=== PATIENT | female | born 1980 | race Caucasian/White ===

== ENCOUNTER 2019-05-03 06:33 | Inpatient (IN) | payer BC, OTHER ==
[~2019-05-03] VITALS: Ht 165.1 cm; Wt 83.6 kg
[~2019-05-03 06:33] MED LIST: ADDERALL20 MG PO; ATIVAN 0.50.5 MG/TAB PO; BCP TD; BIRTH CONTROL; CEFTIN250 MG PO; CEFTIN500 MG PO; DIFLUCAN150 MG PO; LEXAPRO5 MG PO; LORTAB 5/500 501 TAB PO; NO HOME MEDICATIONS; NORCO 325 MG-51 TAB PO; PROZAC 20MG20 MG PO; WELLBUTRIN 75MG75 MG PO
[2019-05-10] VITALS (39 sets, daily range): BP systolic 102–153; BP diastolic 57–102; PULSE 78–120; TEMP 98–98.7
--- NOTE | 2019-05-10 07:30 | NUR ---
Patient ambulatory to LR3 with sister, changed into gown, and FHR/TOCO monitors placed and explained. Patient denies any regular contractions, vaginal bleeding, leaking of fluid. Plan of care discussed. 0800: IV start in left hand and blood obtained and to lab. IV infiltrated. 0810: IV placed in right hand and LR infusing. 0820: FHR monitor tracing maternal heart rate due to patient sitting forward. Assessment completed and Consents/ packet gone over a signed. 0830: FHR monitor tracing maternal heart rate intermittently. 0838: Dr. Tran at bedside and assessing patient/FHR strip. Plan of care discussed. 0840: SVE-2/70/-2 and AROM done at this time. Bloody/clear fluid noted at this time.
[2019-05-10] MEDS ORDERED: PRENATAL MVI (07:49)
[2019-05-10 08:12] LABS: BASO % 0.5 % (0.0-2.0); EOS # 0.1 (0.0-0.7); GRAN # 3.8 (1.4-6.5); GRAN % 58.8 % (42.2-75.2); HEMOGLOBIN 11.2 g/dl (12.5-16.0); LYMPH # 1.7 (1.2-3.4); MEAN CELL VOLUME 86 fl (80.0-100.0); MEAN CORPUSCULAR HEMOGLOBIN 29 pg (27.0-31.0); MEAN CORPUSCULAR HGB CONC 33 g/dl (33.0-37.0); MEAN PLATELET VOLUME 10.2 fl (7.4-10.4); MONO # 0.7 (0.1-0.6); MONO % 10.8 % (1.7-9.3); PLATELET COUNT 218 K/mm3 (130-400); RED BLOOD COUNT 3.89 M/mm3 (4.10-5.30); REDCELL DISTRIBUTION WIDTH-CV 13.6 % (11.5-14.5)
[2019-05-10 08:14] LABS: HEMATOCRIT 33.6 % (37.0-47.0)
--- NOTE | 2019-05-10 08:55 | NUR ---
Patient off monitor to void, light brown/green tinged fluid noted on towel/chucks.
--- NOTE | 2019-05-10 10:05 | NUR ---
Pericare done and light green/brown/pink tinged fluid noted on towel.
--- NOTE | 2019-05-10 10:10 | NUR ---
FHR baseline 145-150bpm and intermittently tracing maternal heart rate due to patietn sitting forward. 1025: FHR monitor continues to intermittently trace maternal heart rate due to patient repositioning, monitor adjusted at this time.
--- NOTE | 2019-05-10 11:00 | NUR ---
Patient requesting epidural and Ever Nava CRNA notified. 1120: Patient sitting on edge of bed and FHR difficult to trace due to patients position. Ever Nava CRNA at bedside for placement of epidural. 1126: Test dose given and patient tolerates well. 1132: Patient repositioned and plan of care discussed. Dr. Tran at nurses station and updated.
--- NOTE | 2019-05-10 14:00 | NUR ---
FHR monitor tracing maternal heart rate intermittently. 1400: SVE-8-9/90/0 and patient left lateral with peanut ball in place. Difficulty tracing FHR and monitor adjusted.
--- NOTE | 2019-05-10 15:00 | NUR ---
SVE-10/100/0 and patient requesting to rest and sit up for awhile before pushing. Dr. Tran notified/see physician notification. 1532: Patient begins to practice push with contractions with this RN. 1535: Dr. Tran called and notified to come for delivery and on the way. Patient resting and granados catheter removed and patient tolerates well. 1548: Dr. Tran at bedside and patient set up for vaginal delivery. Bed taken apart and pericare done. 1550: Patient begins to push per Dr. Baez orders. 1552: Spontaneous vaginal delivery of head followed by body, bulbed syringed and to patient abdomen and Wendy RN assumes care of infant. Cord clamped by Dr. Tran and clamped by sister of patient. 1555: Spontaneous delivery of placenta and pitocin bolus started per protocol. Fundal massage done/moderate bleeding noted/boggy and after massage begins to firm and bleeding slows. Dr. Tran begins to repair laceration. Fundal massage done/bleeding moderate and red lisa done at this time per physician. Order for methergine at this time. 1605: Methergine IM given in right thigh. Patient repositioned and ice pack to perineum. Plan of care discussed.
[2019-05-11 02:30] VITALS: BP 95/62; PULSE 79; TEMP 97.9
[2019-05-11 07:15] VITALS: BP 106/68; PULSE 79; TEMP 97.6
[2019-05-11] MEDS ORDERED: PERCOCET 325 MG1 TA2 PO (07:40)
[2019-05-11] MEDS ORDERED: MOTRIN 800800 MG/TAB PO (07:40)
[2019-05-11 11:15] VITALS: BP 102/67; PULSE 75; TEMP 98.2
[2019-05-11 16:28] VITALS: BP 101/69; PULSE 81; TEMP 98
== END 2019-05-11 17:00 | disposition home or self-care (01) | DRG 806 ==
LOC: LDR 05-10 06:32 → OB 05-10 07:15
PROVIDERS: ADMIT Obstetrics & Gynecology
PROC: 10E0XZZ Delivery of Products of Conception, External Approach (ICD-10-PCS; principal; 2019-05-10)
PROC: 0KQM0ZZ Repair Perineum Muscle, Open Approach (ICD-10-PCS; 2019-05-10)
PROC: 10907ZC Drainage of Amniotic Fluid, Therapeutic from Products of Conception, Via Natural or Artificial Opening (ICD-10-PCS; 2019-05-10)
PROC: 3E033VJ Introduction of Other Hormone into Peripheral Vein, Percutaneous Approach (ICD-10-PCS; 2019-05-10)
DX: O77.0 Labor and delivery complicated by meconium in amniotic fluid (principal); O44.23 Partial placenta previa NOS or without hemorrhage, third trimester; Z37.0 Single live birth; O70.1 Second degree perineal laceration during delivery; Z3A.39 39 weeks gestation of pregnancy; Z23 Encounter for immunization; O99.52 Diseases of the respiratory system complicating childbirth; J45.909 Unspecified asthma, uncomplicated; O99.62 Diseases of the digestive system complicating childbirth; O99.344 Other mental disorders complicating childbirth; K21.9 Gastro-esophageal reflux disease without esophagitis; F41.9 Anxiety disorder, unspecified; F32.9 Major depressive disorder, single episode, unspecified
CPT/HCPCS: J2210; J2405; J2590; J7120

== ENCOUNTER 2021-07-10 10:57 | Outpatient (CLI) | payer OTHER ==
[~2021-07-10] VITALS: Ht 165.1 cm; Wt 70.4 kg
[2021-07-10] VITALS (7 sets, daily range): BP systolic 102–124; BP diastolic 57–86; PULSE 54–91; TEMP 97
[~2021-07-10 10:57] MED LIST changes: +MOTRIN 800800 MG/TAB PO; +PERCOCET 325 MG1 TA2 PO; +PRENATAL MVI
[2021-07-10] MEDS ORDERED: PROZAC 20MG20 MG PO (12:23)
[2021-07-10] MEDS ORDERED: SINGULAIR 110 MG/TAB PO (12:23)
[2021-07-10] MEDS ORDERED: ZINC LOZENGES1 LOZ PO (12:24)
[2021-07-10] MEDS ORDERED: ADDERALL XR30 MG PO (12:25)
--- NOTE | 2021-07-10 13:15 | NUR ---
Pt tolerated infusion and 1 hr observation period without issue. INT DC'd with catheter intact. She is escorted out to ED entrance.
== END 2021-07-10 13:15 | disposition home or self-care (01) ==
LOC: EUO 10:57
DX: J02.9 Acute pharyngitis, unspecified (principal)
CPT/HCPCS: Q0244